=== PATIENT | male | born 1955 | race Caucasian/White ===

== ENCOUNTER → 2020-10-17 13:22 | Outpatient (BNVA) | payer MEDICARE, SELFPAY | PROVIDERS: PCP Internal Medicine; Visit Provider Urology | DX: C61 Malignant neoplasm of prostate (principal); N52.9 Male erectile dysfunction, unspecified | CPT/HCPCS: Q3014 ==

== ENCOUNTER → 2021-02-14 13:33 | Outpatient (BNVA) | payer MEDICARE, SELFPAY | PROVIDERS: PCP Internal Medicine; Visit Provider Urology | DX: C61 Malignant neoplasm of prostate (principal); N52.9 Male erectile dysfunction, unspecified | CPT/HCPCS: 51798; 81002; 99212 ==

== ENCOUNTER → 2021-08-16 13:04 | Outpatient (BNVA) | payer MEDICARE, SELFPAY | PROVIDERS: Visit Provider Urology | DX: C61 Malignant neoplasm of prostate (principal); N52.9 Male erectile dysfunction, unspecified; N40.1 Benign prostatic hyperplasia with lower urinary tract symptoms; N13.8 Other obstructive and reflux uropathy; E78.5 Hyperlipidemia, unspecified | CPT/HCPCS: Q3014 ==

== ENCOUNTER → 2021-12-19 08:19 | Outpatient (BNVA) | payer MEDICARE, SELFPAY | PROVIDERS: PCP Internal Medicine; Visit Provider Urology | DX: C61 Malignant neoplasm of prostate (principal); N52.9 Male erectile dysfunction, unspecified | CPT/HCPCS: Q3014 ==

== ENCOUNTER 2022-04-25 11:23 | Outpatient (AMB) | payer MEDICARE, SELFPAY ==
--- NOTE | 2022-04-25 11:36 | A.OFFVIS_ITS ---
Intake Vital Signs 04/25/22 11:44 Height 5 ft 11 in Weight 200 lb BMI 27.8 BP 130/80 Blood Pressure Location Rt brachial Position Sitting Respiration 18 Pulse 71 Pulse Source Pulse Oximeter Intake Visit Reasons: 4 Month MRI/PSA(SET) Intake Note: Patient is present for mri/psa follow up Sap Trainer Required: No Accompanied by: Self / Same As Patient Allergies No Known Allergies Allergy (Verified 10/23/23 11:06) HPI HPI Comments History of Present Illness Details Robert is very pleasant 66-year-old male. He is a patient of Dr. Almendarez. He is seen for the following urologic conditions - prostate cancer - erectile dysfunction Prostate cancer: Single core but group 4 in May 2020 on repeat biopsy Single core positive Did ask about erectile dysfunction and prescription for tadalafil provided Prostate cancer was diagnosed 01/18 Dr Rivers. Diagnosis was reached by needle biopsy, for elevated PSA, PSA at diagnosis 4.8, size at TRUS 55gm. The [place] grade is - December 2018 3+3 = 6 11/13 LLB 20% 1 core - Insufficient DNA for Polaris 05/20 - May 2020 , 4+4 = 8 / cores LLB 5% - on targetted core. pathology reviewed at [facility]. Assessment with small focus of [place] pattern 4. TNM Classification of Malignant Tumours (TNM) T1c. The [place] (NCCN) risk category is Low Risk (PSA< 10, Gl < 7, T1c), Group 1. Initial therapy included Primary treatment, Deferred Therapy (active surveillance). Recent labs included 04/20 2.0 10/20 2.7 02/19 2.4 04/21 1.5, 10/21 1.6 - 02/20 2.3, 08/22 2.1, 12/24 2.2, 04/23 1.9 Recent imaging included 05/21 MRI - will left paramedian base 2.3 cm lesion PiRADs 3 - 04/23 MRI right Associated conditions erectile dysfunction Yes hematuria No hot flashes No incontinence No osteopenia No pathologic fracture No radiation cystitis No rectal urgency No Therapeutic plan: Four months PSA with [facility] Medical History Hyperlipidemia Feeling of incomplete bladder emptying Benign prostatic hyperplasia with lower urinary tract symptoms Surgical History History of prostate biopsy Review of Systems Const Denies chills and Denies fever(s) Card Reports no additional complaints and Denies syncope Resp Denies cough GI Denies abdominal pain and Denies heartburn Reports as per HPI and Denies change in libido Neuro Denies syncope Psych Denies change in libido Endo Denies change in libido Physical Exam Vital Signs: Last Vital Signs Pulse 71 04/25/22 11:44 Resp 18 04/25/22 11:44 BP 130/80 04/25/22 11:44 BMI result Body Mass Index 27.8 Const General: cooperative, healthy appearing, comfortable and no acute distress Orientation/consciousness: patient oriented x3 HEENT Face and sinus: Yes normal facial exam Mouth: moist mucous membranes Neck Neck: Yes normal visual inspection, Yes full ROM and Yes trachea midline Chest Chest palpation & inspection: normal inspection of the chest Resp Effort & Inspection: normal respiratory effort, able to speak in complete sentences and no respiratory distress GI Inspection: Yes normal to inspection Back/Spine/Pelvis Cervical Spine: normal cervical lordosis Thoracic/Lumbar Spine: thoracic and lumbar spine normal to inspection Skin General skin exam: no rashes or lesions noted Neuro General: patient oriented x3, gait normal, tone normal and moves all extremities Extrem General: Yes normal to inspection and Yes capillary refill normal Assessment & Plan Assessment & Plan (1) Erectile dysfunction: Code(s): N52.9 - Male erectile dysfunction, unspecified (2) Prostate cancer: Comment: May 2020 single focused core 5% [place] 4 + 4 Code(s): C61 - Malignant neoplasm of prostate Plan Six-month follow-up Orders: Orders Prostate Specific Antigen 6 Months C61 - Malignant neoplasm of prostate Patient Instructions: Imaging studies, laboratory and physical exam results were discussed and reviewed in detail. No major barriers to patient understanding were identified. An opportunity to ask questions regarding the treatment plan was provided. All questions were answered. The patient expressed understanding and agreement with the above treatment plan. The patient is aware they should contact our office by phone for worsening of their current condition or the appearance of new urologic symptoms. Compliance is encouraged with any medications and followup testing that is ordered. It is a privilege to participate in the urologic care of your patient. If you have any questions or concerns regarding treatment for the above conditions, or other urologic issues, please do not hesitate to contact me. The office telephone contact is [phone]. This note is constructed using voice recognition software. While every effort has been made to ensure accuracy informatica errors may have been included. Yours sincerely, Dr Jerry Rivers MD, ANDRY [facility] - Urology Providers of Expert, Compassionate Care for the Genitourinary System Coding Level of Care Code Est Pt Level 3 (10396) Diagnoses Erectile dysfunction N52.9 Prostate cancer C61
[2022-04-25 11:44] VITALS: BP 130/80; PULSE 71; RESP 18; BMI 27.8
== END 2022-04-25 12:06 | disposition home or self-care (01) ==
LOC: HO.HUSH 11:23
PROVIDERS: PCP Internal Medicine; Visit Provider Urology
DX: N52.9 Male erectile dysfunction, unspecified (principal); C61 Malignant neoplasm of prostate
CPT/HCPCS: 99499

== ENCOUNTER → 2022-10-24 08:48 | Outpatient (BNVA) | payer MEDICARE, SELFPAY | PROVIDERS: PCP Internal Medicine; Visit Provider Urology | DX: C61 Malignant neoplasm of prostate (principal); N52.9 Male erectile dysfunction, unspecified; N40.1 Benign prostatic hyperplasia with lower urinary tract symptoms; N13.8 Other obstructive and reflux uropathy; Z79.899 Other long term (current) drug therapy | CPT/HCPCS: Q3014 ==

== ENCOUNTER → 2023-02-20 13:49 | Outpatient (BNVA) | payer MEDICARE, SELFPAY | PROVIDERS: PCP Internal Medicine; Visit Provider Urology | DX: C61 Malignant neoplasm of prostate (principal) | CPT/HCPCS: 99212 ==

== ENCOUNTER 2023-06-26 12:51 | Outpatient (AMB) | payer MEDICARE, SELFPAY ==
--- NOTE | 2023-06-26 13:25 | MHC.OFFVIS ---
Intake Intake Visit Reasons: 4 month psa(set) Allergies No Known Allergies Allergy (Verified 02/20/23 13:59) Medication List - Last Reconciled 06/26/23 by Jerry Rivers MD albuterol sulfate 90 mcg/actuation 2 puffs PO QID finasteride 5 mg PO DAILY 90 days simvastatin 20 mg PO BEDTIME tadalafil 5 mg PO DAILY PRN 90 days HPI HPI Comments History of Present Illness Details Robert is very pleasant male. He is a patient of Dr. Almendarez. He is seen for the following urologic conditions - prostate cancer - erectile dysfunction Telemedicine Evaluation 15 min Consultation [facility] Ramón Video attempted Stable PSA with finasteride cycling 06/24 4.1 cycling finasteride daily 01/22 3.1 cycling finasteride qod Four month review Prostate cancer: Single core but group 4 in May 2020 on repeat biopsy Single core positive Did ask about erectile dysfunction and prescription for tadalafil provided Prostate cancer was diagnosed 01/18 Dr Rivers. Diagnosis was reached by needle biopsy, for elevated PSA, PSA at diagnosis 4.8, size at TRUS 55gm. The [place] grade is - December 2018 3+3 = 6 11/13 LLB 20% 1 core - Insufficient DNA for Polaris 05/20 - May 2020 , 4+4 = 8 11/13 cores LLB 5% - on targetted core. pathology reviewed at [facility]. Assessment with small focus of [place] pattern 4 TNM Classification of Malignant Tumours (TNM) T1c. The D'Denny (NCCN) risk category is Low Risk (PSA< 10, Gl < 7, T1c), Group 1. Initial therapy included Primary treatment, Deferred Therapy (active surveillance). Recent labs included 04/20 2.0, 10/20 2.7 - 02/20 2.3, 08/22 2.1, 12/24 2.2, 04/23 1.9, 10/23 3.2 Recent imaging included 05/21 MRI - will left paramedian base 2.3 cm lesion PiRADs 3 - 04/23 MRI 40gm 9mm PiRADS 3 RBL Associated conditions erectile dysfunction Yes Therapeutic plan: Four months PSA PFSH Medical History Benign prostatic hyperplasia with lower urinary tract symptoms Feeling of incomplete bladder emptying Hyperlipidemia Surgical History History of prostate biopsy Review of Systems Const All systems reviewed & are unremarkable except as noted in HPI and below Reports no additional complaints Resp Reports no additional complaints GI Reports no additional complaints Reports as per HPI Musc Reports no additional complaints Physical Exam Telemedicine evaluation Appropriate responses Regular breathing rate and rhythm HEENT Head: Yes normal to inspection Ears: hearing grossly normal bilaterally Eyes General: appearance normal, both eyes and all related structures Neck Neck: Yes normal visual inspection Chest Chest palpation & inspection: normal inspection of the chest Resp Effort & Inspection: normal respiratory effort and able to speak in complete sentences Assessment & Plan Assessment & Plan (1) Prostate cancer: Comment: May 2020 single focused core 5% [place] 4 + 4 Code(s): C61 - Malignant neoplasm of prostate Plan Four month review P PSA Orders: Orders Prostate Specific Antigen 4 Months C61 - Malignant neoplasm of prostate Patient Instructions: Imaging studies, laboratory and physical exam results were discussed and reviewed in detail. No major barriers to patient understanding were identified. An opportunity to ask questions regarding the treatment plan was provided. All questions were answered. The patient expressed understanding and agreement with the above treatment plan. The patient is aware they should contact our office by phone for worsening of their current condition or the appearance of new urologic symptoms. Compliance is encouraged with any medications and followup testing that is ordered. It is a privilege to participate in the urologic care of your patient. If you have any questions or concerns regarding treatment for the above conditions, or other urologic issues, please do not hesitate to contact me. The office telephone contact is [phone]. This note is constructed using voice recognition software. While every effort has been made to ensure accuracy solar electric/photovoltaic installer errors may have been included. Yours sincerely, Dr Jerry Rivers MD, ANDRY [facility] - Urology Providers of Expert, Compassionate Care for the Genitourinary System Telehealth Telehealth Location of provider rendering services: practice address Location of patient: address on file Patient Identification confirmed using: Name, : Yes Telehealth method: video Patient verbally consented to treatment: Yes Patient verbally consented to billing insurance company: Yes Patient informed of any privacy concerns related to visit: Yes Coding Level of Care Code Tele Est Pt Level 3 (66640) Diagnoses Prostate cancer C61
== END 2023-06-26 14:14 | disposition home or self-care (01) ==
LOC: HO.HUSH 12:51
PROVIDERS: PCP Internal Medicine; Visit Provider Urology
DX: C61 Malignant neoplasm of prostate (principal); N52.1 Erectile dysfunction due to diseases classified elsewhere
CPT/HCPCS: 99213

== ENCOUNTER → 2023-06-26 12:51 | Outpatient (BNVA) | payer MEDICARE, SELFPAY | PROVIDERS: PCP Internal Medicine; Visit Provider Urology | DX: C61 Malignant neoplasm of prostate (principal); N52.9 Male erectile dysfunction, unspecified | CPT/HCPCS: Q3014 ==

== ENCOUNTER 2023-10-23 11:04 | Outpatient (AMB) | payer MEDICARE, SELFPAY ==
--- NOTE | 2023-10-23 11:04 | MHC.OFFVIS ---
Intake Intake Visit Reasons: 4M PSA(SET) Intake Note: Patient is Present for Telephone Follow Up Urology Med: Finasteride, Tadalafil Antibiotic Allergy: None Blood Thinner: None Allergies No Known Allergies Allergy (Verified 10/23/23 11:06) Medication List - Last Reconciled 10/23/23 by Jerry Rivers MD albuterol sulfate 90 mcg/actuation 2 puffs PO QID finasteride 5 mg PO DAILY 90 days simvastatin 20 mg PO BEDTIME tadalafil 5 mg PO DAILY PRN 90 days HPI HPI Comments History of Present Illness Details Robert is very pleasant male. He is a patient of Dr. Almendarez. He is seen for the following urologic conditions - prostate cancer - erectile dysfunction Telemedicine Evaluation 15 min Consultation [employer] Ram[facility] Video attempted PSA has risen in past 4 months 10/24 5.6 finsteride cycling 06/24 4.1 cycling finasteride daily 01/22 3.1 cycling finasteride qod Four month review Prostate cancer: Single core but group 4 in May 2020 on repeat biopsy Single core positive Did ask about erectile dysfunction and prescription for tadalafil provided Prostate cancer was diagnosed 01/18 Dr Rivers. Diagnosis was reached by needle biopsy, for elevated PSA, PSA at diagnosis 4.8, size at TRUS 55gm. The [place] grade is - December 2018 3+3 = 6 11/13 LLB 20% 1 core - Insufficient DNA for Polaris 05/20 - May 2020 , 4+4 = 8 / cores LLB 5% - on targeted core. pathology reviewed at [facility]. Assessment with small focus of [place] pattern 4 TNM Classification of Malignant Tumours (TNM) T1c. The D'Denny (NCCN) risk category is Low Risk (PSA< 10, Gl < 7, T1c), Group 1. Initial therapy included Primary treatment, Deferred Therapy (active surveillance). Recent labs included 04/20 2.0, 10/20 2.7, 02/20 2.3, 08/22 2.1, 12/24 2.2, 04/23 1.9, 10/23 3.2 Recent imaging included 05/21 MRI - will left paramedian base 2.3 cm lesion PiRADs 3 - 04/23 MRI 40gm 9mm PiRADS 3 RBL Associated conditions erectile dysfunction Yes Therapeutic plan: Two months PSA [facility] Medical History Hyperlipidemia Feeling of incomplete bladder emptying Benign prostatic hyperplasia with lower urinary tract symptoms Surgical History History of prostate biopsy Review of Systems Const All systems reviewed & are unremarkable except as noted in HPI and below Reports no additional complaints Resp Reports no additional complaints GI Reports no additional complaints Reports as per HPI Musc Reports no additional complaints Physical Exam Telemedicine evaluation Appropriate responses Regular breathing rate and rhythm HEENT Head: Yes normal to inspection Ears: hearing grossly normal bilaterally Eyes General: appearance normal, both eyes and all related structures Neck Neck: Yes normal visual inspection Chest Chest palpation & inspection: normal inspection of the chest Resp Effort & Inspection: normal respiratory effort and able to speak in complete sentences Assessment & Plan Assessment & Plan (1) Prostate cancer: Comment: May 2020 single focused core 5% [place] 4 + 4 Code(s): C61 - Malignant neoplasm of prostate (2) Erectile dysfunction: Code(s): N52.9 - Male erectile dysfunction, unspecified Plan Two month follow-up PSA Orders: Orders Blood Urea Nitrogen 10/23/23 R39.15 - Urgency of urination, C61 - Malignant neoplasm of prostate Creatinine 10/23/23 R39.15 - Urgency of urination, C61 - Malignant neoplasm of prostate MR pelvis wo/w con 10/23/23 C61 - Malignant neoplasm of prostate Prostate Specific Antigen 2 Months C61 - Malignant neoplasm of prostate Medications: Refilled finasteride 5 mg PO DAILY 90 tabs 1RF 90 days C61 - Malignant neoplasm of prostate Patient Instructions: Imaging studies, laboratory and physical exam results were discussed and reviewed in detail. No major barriers to patient understanding were identified. An opportunity to ask questions regarding the treatment plan was provided. All questions were answered. The patient expressed understanding and agreement with the above treatment plan. The patient is aware they should contact our office by phone for worsening of their current condition or the appearance of new urologic symptoms. Compliance is encouraged with any medications and followup testing that is ordered. It is a privilege to participate in the urologic care of your patient. If you have any questions or concerns regarding treatment for the above conditions, or other urologic issues, please do not hesitate to contact me. The office telephone contact is [phone]. This note is constructed using voice recognition software. While every effort has been made to ensure accuracy petroleum geology faculty member errors may have been included. Yours sincerely, Dr Jerry Rivers MD, [facility] - Urology Providers of Expert, Compassionate Care for the Genitourinary System Telehealth Telehealth Location of provider rendering services: practice address Location of patient: address on file Patient Identification confirmed using: Name, : Yes Telehealth method: video Patient verbally consented to treatment: Yes Patient verbally consented to billing insurance company: Yes Patient informed of any privacy concerns related to visit: Yes Coding Level of Care Code Tele Est Pt Level 3 (83051) Diagnoses Prostate cancer C61 Erectile dysfunction N52.9
== END 2023-10-23 11:48 | disposition home or self-care (01) ==
LOC: HO.HUSH 11:04
PROVIDERS: PCP Internal Medicine; Visit Provider Urology
DX: C61 Malignant neoplasm of prostate (principal); N52.9 Male erectile dysfunction, unspecified
CPT/HCPCS: 99213

== ENCOUNTER → 2023-10-23 11:04 | Outpatient (BNVA) | payer MEDICARE, SELFPAY | PROVIDERS: PCP Internal Medicine; Visit Provider Urology ==

== ENCOUNTER 2023-12-29 11:44 | Outpatient (AMB) | payer MEDICARE, SELFPAY ==
--- NOTE | 2023-12-29 11:56 | A.OFFVIS_ITS ---
Intake Intake Visit Reasons: 2m/MRI/PSA(set)Confirmed Intake Note: Patient is Present for Follow Up Urology Medication: Finasteride, Tadalafil Antibiotic Allergies: None Blood Thinners: None Allergies No Known Allergies Allergy (Verified 10/23/23 11:06) HPI HPI Comments History of Present Illness Details Robert is very pleasant male. He is a patient of Dr. Almendarez. He is seen for the following urologic conditions - prostate cancer - erectile dysfunction PSA has stayed elevated for past 4 months Is due for targeted MRI ultrasound guided prostate biopsy This will be organized 12/26 5.6 finasteride 10/24 5.6 finsteride cycling 06/24 4.1 cycling finasteride daily 01/22 3.1 cycling finasteride qod MRI - 11/25 prostate MRI anterior right trans ition zone 1.3 cm PiRADS 3 Prostate cancer: Single core but group 4 in May 2020 on repeat biopsy Single core positive Did ask about erectile dysfunction and prescription for tadalafil provided Prostate cancer was diagnosed 01/18 Dr Rivers. Diagnosis was reached by needle biopsy, for elevated PSA, PSA at di agnosis 4.8, size at TRUS 55gm. The [place] grade is - December 2018 3+3 = 6 11/13 LLB 20% 1 core - Insufficient DNA for Polaris 05/20 - May 2020 , 4+4 = 8 11/13 cores LLB 5% - on targeted core. pathology reviewed at [facility]. Assessment with small focus of [place] pattern 4 TNM Classification of Malignant Tumours (TNM) T1c. The D'Denny (NCCN) risk category is Low Risk (PSA< 10, Gl < 7, T1c), Group 1. Initial therapy included Primary treatment, Deferred Therapy (active surveillance). Recent labs included 04/20 2.0, 10/20 2.7, 02/20 2.3, 08/22 2.1, 12/24 2.2, 04/23 1.9, 10/23 3.2 Recent imaging included 05/21 MRI - will left paramedian base 2.3 cm lesion PiRADs 3 - 04/23 MRI 40gm 9mm PiRADS 3 RBL Associated conditions erectile dysfunction Yes Therapeutic plan: Two months PSA PFSH Medical History Hyperlipidemia Feeling of incomplete bladder emptying Benign prostatic hyperplasia with lower urinary tract symptoms Surgical History History of prostate biopsy Review of Systems Const Denies chills and Denies fever(s) Card Reports no additional complaints and Denies syncope Resp Denies cough GI Denies abdominal pain and Denies heartburn Reports as per HPI and Denies change in libido Neuro Denies syncope Psych Denies change in libido Endo Denies change in libido Physical Exam Const General: cooperative, healthy appearing, comfortable and no acute distress Orientation/consciousness: patient oriented x3 HEENT Face and sinus: Yes normal facial exam Mouth: moist mucous membranes Neck Neck: Yes normal visual inspection, Yes full ROM and Yes trachea midline Chest Chest palpation & inspection: normal inspection of the chest Resp Effort & Inspection: normal respiratory effort, able to speak in complete sentences and no respiratory distress GI Inspection: Yes normal to inspection Back/Spine/Pelvis Cervical Spine: normal cervical lordosis Thoracic/Lumbar Spine: thoracic and lumbar spine normal to inspection Skin General skin exam: no rashes or lesions noted Neuro General: patient oriented x3, gait normal, tone normal and moves all extremities Extrem General: Yes normal to inspection and Yes capillary refill normal Assessment & Plan Assessment & Plan (1) Prostate cancer: Comment: May 2020 single focused core 5% [place] 4 + 4 Code(s): C61 - Malignant neoplasm of prostate (2) Erectile dysfunction: Code(s): N52.9 - Male erectile dysfunction, unspecified Plan Risks, benefits and alternatives to therapy were discussed. These include but are not limited to infection, bleeding, damage to local organs and tissues, need for further interventions. Anesthetic risks regarding cardiac arrhythmia, blood clots, and potential mortality were discussed. The patient understands the typical recovery time and the outpatient nature of the procedure. After consideration of these risks the patient gives full informed consent and they wish to move ahead with the procedure. Targeted ultrasound MRI fusion biopsy Patient Instructions: Imaging studies, laboratory and physical exam results were discussed and reviewed in detail. No major barriers to patient understanding were identified. An opportunity to ask questions regarding the treatment plan was provided. All questions were answered. The patient expressed understanding and agreement with the above treatment plan. The patient is aware they should contact our office by phone for worsening of their current condition or the appearance of new urologic symptoms. Compliance is encouraged with any medications and followup testing that is ordered. It is a privilege to participate in the urologic care of your patient. If you have any questions or concerns regarding treatment for the above conditions, or other urologic issues, please do not hesitate to contact me. The office telephone contact is [phone]. This note is constructed using voice recognition software. While every effort has been made to ensure accuracy sales support engineer errors may have been included. Yours sincerely, Dr Jerry Rivers MD, ANDRY [facility] - Urology Providers of Expert, Compassionate Care for the Genitourinary System Coding Level of Care Code Est Pt Level 4 (14181) Diagnoses Prostate cancer C61 Erectile dysfunction N52.9
== END 2023-12-29 12:31 | disposition home or self-care (01) ==
PROVIDERS: PCP Internal Medicine; Visit Provider Urology
DX: C61 Malignant neoplasm of prostate (principal); N52.9 Male erectile dysfunction, unspecified
CPT/HCPCS: 99213

== ENCOUNTER → 2023-12-29 11:44 | Outpatient (BNVA) | payer MEDICARE, SELFPAY | PROVIDERS: PCP Internal Medicine; Visit Provider Urology | DX: C61 Malignant neoplasm of prostate (principal); N52.9 Male erectile dysfunction, unspecified | CPT/HCPCS: 99212 ==

== ENCOUNTER → 2024-01-18 09:35 | Day surgery (SDC) | payer MEDICARE, SELFPAY ==
[2024-01-18 09:50] VITALS: BMI 27.6
[2024-01-18 09:59] VITALS: BP 126/76; PULSE 67; RESP 18; TEMP 36.1; O2SAT 97
[2024-01-18] MEDS: Lactated Ringers 1,000 ML 50 ML IVCONT (10:17)
[2024-01-18] MEDS: levoFLOXacin 500 MG TABLET PO (10:20)
--- NOTE | 2024-01-18 10:27 | W.PM.OPN ---
Operative Note Operative Note Date of Service: 01/18/24 Narrative: 11/25 prostate MRI anterior right transition zone 1.3 cm PiRADS 3 Preoperative diagnosis: Prostate Cancer Postoperative diagnosis: Prostate Cancer Procedure: 1. transrectal ultrasound-guided pudendal nerve block 2. MRI-US fusion image registration performed 3. transperineal ultrasound-guided prostate biopsy 16 core including targets Surgeon: Dr. Jerry Rivers Anesthetic: Sedation plus local Indications for procedure: Prostate Cancer Procedure: After informed consent was verified, the patient was brought into the procedure area. Patient identity confirmed. Perioperative antibiotics confirmed. Safety pause time out performed. Anesthesia performed per protocol. Scrotum taped out of operative area. Iodine prep used. Perineal injection of local anesthetic. Digital guided prostate pudendal nerve block performed with 10 cc of 1% lidocaine. 5cc each side. Combination 10cc iodine with 50cc gel was mixed and placed in the rectum. Ultrasound probe was placed per rectum. Ultrasound probe stabilized on a prostate stepper with attached grid. The [employer] software and hardware platform used for US image acquisition, US 3D model creation and MRI-US fusion image overlay. Ultrasound placement was made with external grid calibration for height and prostate diameter in both the transverse and longitudinal planes. Grid A-C covering right prostate and c-F covering left prostate. Numbers 1.0-2.5 covering posterior prostate and 2.5-4.0 covering anterior prostate. Once grid calibration was confirmed prostate ultrasound data acquisition was performed in the transverse fashion. The US images were registered to create model boundaries. A three dimensional ultrasound model was created using The [employer] software. The model was reviewed against acquired US images. The planned needle targeting, based on prior acquisition of MRI imaging, was overlaid on the ultrasound images and targets confirmed through ultrasound review. Adjustments were then made between real time and projected model targeting locations. Based on pre-planning evaluation 16 targets had been identified. These included 2 targets of the PI-RADS 3 prostate bilateral mid identified lesion/s. He tolerated the procedure well. Was transferred to stable condition in the PACU. Printed instructions regarding antibiotic use and common side effects such as low-grade temperature, potential infection and bleeding were given Pathology: 16 core prostate biopsy CPT 49821 Modifier 22 for complexity of procedure execution (Perineal prostate biopsy) CPT 26968 US/MRI target fusion and manipulation in realtime
--- NOTE | 2024-01-18 10:27 | MHC.SHP ---
Pre-Procedural Eval Section A - 24 Hr Update-Section A only Date of Service: 01/18/24 The patient is an INPATIENT: No Changes since office visit: No Cold of Flu in the past 2 weeks, No New Medical Problems, No Changes in Medication and No Patient answered all questions The patient has been examined within 24 hours of the surgical procedure. The History & Physical has been completed within 30 days and I have reviewed it.: Yes Section B - Complete if H&P > 30 days Chief Complaint: Malignant neoplasm of prostate Present Medications: see Short Stay Collaborative assessment History of Previous Operations: Relevant previous surgery/procedure and date(s) Allergies: Allergies Allergy/AdvReac Type Severity Reaction Status Date / Time No Known Allergies Allergy Verified 10/23/23 11:06 Review of Systems Sugical H&P ROS: Negative: Constitution, Cardiovascular, Respiratory, Neurological, Psychiatric, Hem-Onc, Allergic/Immunologic, Gastrointestinal, Genitourinary, Musculoskeletal, Integumentary, Endocrine and Eyes/Ears/Nose/Throat Exam Surgical H&P Exam: Normal: HEENT, Normal: Heart, Normal: Lungs, Normal: Extremities, Normal: Abdomen, Normal: Skin and Normal: Neurological Plan Diagnosis/Plan: Unchanged (MRI ultrasound fusion biopsy) I have reviewed the history and physical and performed a pertinent physical examination on my patient. No changes have occurred unless specified. Time Spent With Patient Time: Total time managing care of this patient today ____ minutes.
--- NOTE | 2024-01-18 10:34 | HO.ANESPROP2 ---
HPI - Anesthesia Eval Consult details Narrative: for prostate bx PMFSH Active Problems Active Problems: All Active Problems (Updated 12/19/21 @ 09:00 by Jerry Rivers MD) Erectile dysfunction (Acute) Prostate cancer (Acute) Past Medical History Medical History Hyperlipidemia Feeling of incomplete bladder emptying Benign prostatic hyperplasia with lower urinary tract symptoms Family History Family history of problems with anesthesia: No Surgical History Surgical History History of prostate biopsy History of Problems with Anesthesia: No Social History Social History Advance Directives: No Advance Directives Information Provided: Yes Meds Allergies Allergy/AdvReac Type Severity Reaction Status Date / Time No Known Allergies Allergy Verified 10/23/23 11:06 Active Medications: Current Medications Lactated Ringer's (Lr) 1,000 mls @ 50 mls/hr IVCONT .Q20H WON Last Admin: 01/18/24 10:17 Dose: 50 mls/hr Home Medications Medication Instructions Recorded Confirmed Last Taken Type albuterol sulfate 90 mcg/actuation 2 puff PO QID 10/17/20 01/18/24 Unknown History aerosol inhaler simvastatin 20 mg tablet 20 mg PO BEDTIME 10/17/20 01/18/24 Unknown History Exam Height,Weight and Vital Signs: Height 5 ft 11 in Weight 89.811 kg Last Vital Signs Temp 96.9 F 01/18/24 09:59 Pulse 67 01/18/24 09:59 Resp 18 01/18/24 09:59 BP 126/76 01/18/24 09:59 Pulse Ox 97 01/18/24 09:59 O2 Del Method Room Air 01/18/24 09:59 Airway Mallampati Class: II TM Dist: <=3cm Neck ROM: Full Loose/Missing/Broken Teeth: No Heart: ok Lungs: ok Assessment and Plan Assessment Anesthesia Assessment: Anesthesia Plan Discussed and Chart Reviewed Final Anesthetic Review Family History of Problems with Anesthesia: No History of Problems with Anesthesia: No NPO: Yes ASA Class: II Final Preanesthetic Review: No Changes in Pt Med Stat, Meds/Allgs Chart Reviewed, Consent Obtained/Reviewed and Anes Risks/Benef Reviewed Patient Risk: Low Procedure Risk: Low Anesthetic Plan Anesthetic Plan: GA and Agree w/ Assess. and Plan Disposition: Standard PACU
[2024-01-18 11:20] VITALS: BP 120/74; PULSE 77; RESP 16; TEMP 36.3; O2SAT 96
[2024-01-18 11:25] VITALS: BP 128/76; PULSE 70; RESP 16; O2SAT 96
[2024-01-18 11:30] VITALS: BP 128/80; PULSE 71; RESP 16; O2SAT 96
[2024-01-18 11:35] VITALS: BP 120/82; PULSE 60; RESP 16; O2SAT 96
[2024-01-18 11:50] VITALS: BP 128/79; PULSE 61; RESP 16; TEMP 36.3; O2SAT 96
== END | disposition home or self-care (01) ==
PROVIDERS: PCP Internal Medicine; Visit Provider Urology
PROC: (CPT 55700; principal; 2024-01-18 11:00)
DX: C61 Malignant neoplasm of prostate (principal); N40.1 Benign prostatic hyperplasia with lower urinary tract symptoms; R39.14 Feeling of incomplete bladder emptying; N52.9 Male erectile dysfunction, unspecified; Z79.899 Other long term (current) drug therapy
CPT/HCPCS: 55706; 88305; 88344; C2618; J2704; J3010

== ENCOUNTER 2024-02-09 14:32 | Outpatient (AMB) | payer MEDICARE, SELFPAY ==
--- NOTE | 2024-02-09 14:33 | MHC.OFFVIS ---
Intake Intake Visit Reasons: Prostate Biopsy results Allergies No Known Allergies Allergy (Verified 10/23/23 11:06) HPI HPI Comments History of Present Illness Details Robert is very pleasant male. He is a patient of Dr. Almendarez. He is seen for the following urologic conditions - prostate cancer - erectile dysfunction Telemedicine Evaluation 15 min Consultation [employer] Video attempted Followup targeted biopsy Confirms Gl 4+4 single core at target 12/26 5.6 finasteride 10/24 5.6 finsteride cycling 06/24 4.1 cycling finasteride daily 01/22 3.1 cycling finasteride qod MRI - 11/25 prostate MRI anterior right transition zone 1.3 cm PiRADS 3, 40cc Prostate Cancer - 01/23 - Grade 4 single core [place] score: 4+4=8 (b 3.5), 4+3=7 (D 3.5) - too small to grade (e 2.0, c 3.5) % of pattern 4: 50% of the tumor (at least), % of pattern 5: 0% Grade group: 4 and 3 Tumor quantitation: Number cores positive: 4 Total number of cores: 16 % of tissue involved: 10% of all tissue examined Periprostatic fat inv.: Not identified Seminal vesicle inv.: Not identified Perineural inv.: Not identified LVI: Not identified Prostate cancer: Single core but group 4 in May 2020 on repeat biopsy Single core positive Did ask about erectile dysfunction and prescription for tadalafil provided Prostate cancer was diagnosed 01/18 Dr Rivers. Diagnosis was reached by needle biopsy, for elevated PSA, PSA at diagnosis 4.8, size at TRUS 55gm. The [place] grade is - December 2018 3+3 = 6 11/13 LLB 20% 1 core - Insufficient DNA for Polaris 05/20 - May 2020 , 4+4 = 8 / cores LLB 5% - on targeted core. pathology reviewed at [facility]. Assessment with small focus of [place] pattern 4 TNM Classification of Malignant Tumours (TNM) T1c. The D'Denny (NCCN) risk category is Low Risk (PSA< 10, Gl < 7, T1c), Group 1. Initial therapy included Primary treatment, Deferred Therapy (active surveillance). Recent labs included 04/20 2.0, 10/20 2.7, 02/20 2.3, 08/22 2.1, 12/24 2.2, 04/23 1.9, 10/23 3.2 Recent imaging included 05/21 MRI - will left paramedian base 2.3 cm lesion PiRADs 3 - 04/23 MRI 40gm 9mm PiRADS 3 RBL Associated conditions erectile dysfunction Yes Therapeutic plan: Two months PSA [facility] Medical History Hyperlipidemia Feeling of incomplete bladder emptying Benign prostatic hyperplasia with lower urinary tract symptoms Surgical History History of prostate biopsy Review of Systems Const All systems reviewed & are unremarkable except as noted in HPI and below Reports no additional complaints Resp Reports no additional complaints GI Reports no additional complaints Reports as per HPI Musc Reports no additional complaints Physical Exam Telemedicine evaluation Appropriate responses Regular breathing rate and rhythm HEENT Head: Yes normal to inspection Ears: hearing grossly normal bilaterally Eyes General: appearance normal, both eyes and all related structures Neck Neck: Yes normal visual inspection Chest Chest palpation & inspection: normal inspection of the chest Resp Effort & Inspection: normal respiratory effort and able to speak in complete sentences Assessment & Plan Assessment & Plan (1) Prostate cancer: Comment: May 2020 single focused core 5% [place] 4 + 4 Code(s): C61 - Malignant neoplasm of prostate Plan Polaris evaluation Patient Instructions: Imaging studies, laboratory and physical exam results were discussed and reviewed in detail. No major barriers to patient understanding were identified. An opportunity to ask questions regarding the treatment plan was provided. All questions were answered. The patient expressed understanding and agreement with the above treatment plan. The patient is aware they should contact our office by phone for worsening of their current condition or the appearance of new urologic symptoms. Compliance is encouraged with any medications and followup testing that is ordered. It is a privilege to participate in the urologic care of your patient. If you have any questions or concerns regarding treatment for the above conditions, or other urologic issues, please do not hesitate to contact me. The office telephone contact is [phone]. This note is constructed using voice recognition software. While every effort has been made to ensure accuracy pediatric physician assistant errors may have been included. Yours sincerely, Dr Jerry Rivers MD, ANDRY [facility] - Urology Providers of Expert, Compassionate Care for the Genitourinary System Telehealth Telehealth Location of provider rendering services: practice address Location of patient: address on file Patient Identification confirmed using: Name, : Yes Telehealth method: video Patient verbally consented to treatment: Yes Patient verbally consented to billing insurance company: Yes Patient informed of any privacy concerns related to visit: Yes Coding Level of Care Code Tele Est Pt Level 3 (24298) Diagnoses Prostate cancer C61
== END 2024-02-09 15:28 | disposition home or self-care (01) ==
LOC: HO.HUSH 14:32
PROVIDERS: PCP Internal Medicine; Visit Provider Urology
DX: C61 Malignant neoplasm of prostate (principal)
CPT/HCPCS: 99213

== ENCOUNTER → 2024-02-09 14:32 | Outpatient (BNVA) | payer MEDICARE, SELFPAY | PROVIDERS: PCP Internal Medicine; Visit Provider Urology ==

== ENCOUNTER 2024-03-24 11:35 | Outpatient (AMB) | payer MEDICARE, SELFPAY ==
--- NOTE | 2024-03-24 11:39 | MHC.OFFVIS ---
Intake Visit Reasons: 6 week PSA/ Prolaris results(SET) Intake Note: Patient is Present for Follow Up Urology Medication: None (no longer taking Tadalafil and Finasteride) Antibiotic Allergies: None Blood Thinners:None Allergies No Known Allergies Allergy (Verified 03/24/24 11:45) Medication List - Last Reconciled 03/24/24 by Jerry Rivers MD finasteride 5 mg PO DAILY 90 days simvastatin 20 mg PO BEDTIME tadalafil 5 mg PO DAILY PRN 90 days HPI Comments Details: Robert is very pleasant male. He is a patient of Dr. Almendarez. He is seen for the following urologic conditions - prostate cancer - erectile dysfunction Follow-up discussion following molecular evaluation Molecular evaluation confirms lower risk features despite higher risk clinical features Risk profile left side of high-risk curve below median value for intermediate risk Recommendation single mode therapy without adjuvant hormonal therapy Discussed MRI finding that shows PI-RADS 3 despite high-risk clinical characteristic of biopsy Discussed treatments including robotic prostatectomy versus brachytherapy versus hypofractionated radiation Given age and other performance characteristics would recommend brachytherapy versus hypofractionated radiation Referral to Dr. Kp Tillman who performs brachytherapy has been made 03/25 7.9 12/26 5.6 finasteride 10/24 5.6 finsteride cycling 06/24 4.1 cycling finasteride daily 01/22 3.1 cycling finasteride qod MRI - 11/25 prostate MRI anterior right transition zone 1.3 cm PiRADS 3, 40cc Prolaris - molecular score 3.6, overall recommendation single mode therapy (adjuvant hormonal therapy not recommended0 - risk profile matches left side high-risk curve below median for unfavorable intermediate Prostate Cancer - 01/23 - Grade 4 single core [place] score: 4+4=8 (b 3.5), 4+3=7 (D 3.5) - too small to grade (e 2.0, c 3.5) % of pattern 4: 50% of the tumor (at least), % of pattern 5: 0% Grade group: 4 and 3 Tumor quantitation: Number cores positive: 4 Total number of cores: 16 % of tissue involved: 10% of all tissue examined Periprostatic fat inv.: Not identified Seminal vesicle inv.: Not identified Perineural inv.: Not identified LVI: Not identified Prostate cancer: Single core but group 4 in May 2020 on repeat biopsy Single core positive Did ask about erectile dysfunction and prescription for tadalafil provided Prostate cancer was diagnosed 01/18 Dr Rivers. Diagnosis was reached by needle biopsy, for elevated PSA, PSA at diagnosis 4.8, size at TRUS 55gm. The [place] grade is - December 2018 3+3 = 6 11/13 LLB 20% 1 core - Insufficient DNA for Polaris 05/20 - May 2020 , 4+4 = 8 / cores LLB 5% - on targeted core. pathology reviewed at [facility]. Assessment with small focus of [place] pattern 4 TNM Classification of Malignant Tumours (TNM) T1c. The D'Denny (NCCN) risk category is Low Risk (PSA< 10, Gl < 7, T1c), Group 1. Initial therapy included Primary treatment, Deferred Therapy (active surveillance). Recent labs included 04/20 2.0, 10/20 2.7, 02/20 2.3, 08/22 2.1, 12/24 2.2, 04/23 1.9, 10/23 3.2 Recent imaging included 05/21 MRI - will left paramedian base 2.3 cm lesion PiRADs 3 - 04/23 MRI 40gm 9mm PiRADS 3 RBL Associated conditions erectile dysfunction Yes PFSH Medical History Hyperlipidemia Feeling of incomplete bladder emptying Benign prostatic hyperplasia with lower urinary tract symptoms Surgical History History of prostate biopsy Review of Systems Const Denies chills and Denies fever(s) Card Reports no additional complaints and Denies syncope Resp Denies cough GI Denies abdominal pain and Denies heartburn Reports as per HPI and Denies change in libido Neuro Denies syncope Psych Denies change in libido Endo Denies change in libido Physical Exam Const General: cooperative, healthy appearing, comfortable and no acute distress Orientation/consciousness: patient oriented x3 HEENT Face and sinus: Yes normal facial exam Mouth: moist mucous membranes Neck Neck: Yes normal visual inspection, Yes full ROM and Yes trachea midline Chest Chest palpation & inspection: normal inspection of the chest Resp Effort & Inspection: normal respiratory effort, able to speak in complete sentences and no respiratory distress GI Inspection: Yes normal to inspection Back/Spine/Pelvis Cervical Spine: normal cervical lordosis Thoracic/Lumbar Spine: thoracic and lumbar spine normal to inspection Skin General skin exam: no rashes or lesions noted Neuro General: patient oriented x3, gait normal, tone normal and moves all extremities Extrem General: Yes normal to inspection and Yes capillary refill normal Assessment & Plan Assessment & Plan (1) Prostate cancer: Comment: May 2020 single focused core 5% [place] 4 + 4 Code(s): C61 - Malignant neoplasm of prostate Category: Medical Plan Four week follow-up tele Orders: Referrals Radiation Oncology Referral C61 - Malignant neoplasm of prostate Patient Instructions: Imaging studies, laboratory and physical exam results were discussed and reviewed in detail. No major barriers to patient understanding were identified. An opportunity to ask questions regarding the treatment plan was provided. All questions were answered. The patient expressed understanding and agreement with the above treatment plan. The patient is aware they should contact our office by phone for worsening of their current condition or the appearance of new urologic symptoms. Compliance is encouraged with any medications and followup testing that is ordered. It is a privilege to participate in the urologic care of your patient. If you have any questions or concerns regarding treatment for the above conditions, or other urologic issues, please do not hesitate to contact me. The office telephone contact is [phone]. This note is constructed using voice recognition software. While every effort has been made to ensure accuracy casket assembler errors may have been included. Yours sincerely, Dr Jerry Rivers MD, ANDRY [facility] - Urology Providers of Expert, Compassionate Care for the Genitourinary System Coding Level of Care Code Est Pt Level 4 (73025) Diagnoses Prostate cancer C61
== END 2024-03-24 12:02 | disposition home or self-care (01) ==
PROVIDERS: PCP Internal Medicine; Visit Provider Urology
DX: C61 Malignant neoplasm of prostate (principal)
CPT/HCPCS: 99214

== ENCOUNTER → 2024-03-24 11:35 | Outpatient (BNVA) | payer MEDICARE, SELFPAY | PROVIDERS: PCP Internal Medicine; Visit Provider Urology | DX: C61 Malignant neoplasm of prostate (principal) | CPT/HCPCS: 99212 ==

== ENCOUNTER 2024-04-22 09:29 | Outpatient (AMB) | payer MEDICARE, SELFPAY ==
--- NOTE | 2024-04-22 09:38 | MHC.OFFVIS ---
Intake Visit Reasons: 4 week follow up Intake Note: Pt presents to the office today as a telehealth visit for a 4 week follow up. Urology meds-tadalafil Blood thinners-None Allergies No Known Allergies Allergy (Verified 04/22/24 09:39) Medication List - Last Reconciled 04/22/24 by Jerry Rivers MD finasteride 5 mg PO DAILY 90 days simvastatin 20 mg PO BEDTIME tadalafil 5 mg PO DAILY PRN 90 days HPI Comments Details: Robert is very pleasant male. He is a patient of Dr. Almendarez. He is seen for the following urologic conditions - prostate cancer - erectile dysfunction Telemedicine Evaluation 15 min Consultation [employer] Video Has upcoming meeting with Dr. Layton regarding prostatectomy Did discuss seeing Dr. Ureña for CyberKnife versus hypofractionated therapy Referral made Six week follow-up for discussion Follow-up discussion following molecular evaluation Molecular evaluation confirms lower risk features despite higher risk clinical features Risk profile left side of high-risk curve below median value for intermediate risk Recommendation single mode therapy without adjuvant hormonal therapy Discussed MRI finding that shows PI-RADS 3 despite high-risk clinical characteristic of biopsy Discussed treatments including robotic prostatectomy versus brachytherapy versus hypofractionated radiation 03/25 7.9 12/26 5.6 finasteride 10/24 5.6 finsteride cycling 06/24 4.1 cycling finasteride daily 01/22 3.1 cycling finasteride qod MRI - 11/25 prostate MRI anterior right transition zone 1.3 cm PiRADS 3, 40cc Prolaris - molecular score 3.6, overall recommendation single mode therapy (adjuvant hormonal therapy not recommended0 - risk profile matches left side high-risk curve below median for unfavorable intermediate Prostate Cancer - 01/23 - Grade 4 single core [place] score: 4+4=8 (b 3.5), 4+3=7 (D 3.5) - too small to grade (e 2.0, c 3.5) % of pattern 4: 50% of the tumor (at least), % of pattern 5: 0% Grade group: 4 and 3 Tumor quantitation: Number cores positive: 4 Total number of cores: 16 % of tissue involved: 10% of all tissue examined Periprostatic fat inv.: Not identified Seminal vesicle inv.: Not identified Perineural inv.: Not identified LVI: Not identified Prostate cancer: Single core but group 4 in May 2020 on repeat biopsy Single core positive Did ask about erectile dysfunction and prescription for tadalafil provided Prostate cancer was diagnosed 01/18 Dr Rivers. Diagnosis was reached by needle biopsy, for elevated PSA, PSA at diagnosis 4.8, size at TRUS 55gm. The [place] grade is - December 2018 3+3 = 6 / LLB 20% 1 core - Insufficient DNA for Polaris 05/20 - May 2020 , 4+4 = 8 / cores LLB 5% - on targeted core. pathology reviewed at [facility]. Assessment with small focus of [place] pattern 4 TNM Classification of Malignant Tumours (TNM) T1c. The D'Denny (NCCN) risk category is Low Risk (PSA< 10, Gl < 7, T1c), Group 1. Initial therapy included Primary treatment, Deferred Therapy (active surveillance). Recent labs included 04/20 2.0, 10/20 2.7, 02/20 2.3, 08/22 2.1, 12/24 2.2, 04/23 1.9, 10/23 3.2 Recent imaging included 05/21 MRI - will left paramedian base 2.3 cm lesion PiRADs 3 - 04/23 MRI 40gm 9mm PiRADS 3 RBL Associated conditions erectile dysfunction Yes PFSH Medical History Hyperlipidemia Feeling of incomplete bladder emptying Benign prostatic hyperplasia with lower urinary tract symptoms Surgical History History of prostate biopsy Review of Systems Const All systems reviewed & are unremarkable except as noted in HPI and below Reports no additional complaints Resp Reports no additional complaints GI Reports no additional complaints Reports as per HPI Musc Reports no additional complaints Physical Exam Telemedicine evaluation Appropriate responses Regular breathing rate and rhythm HEENT Head: Yes normal to inspection Ears: hearing grossly normal bilaterally Eyes General: appearance normal, both eyes and all related structures Neck Neck: Yes normal visual inspection Chest Chest palpation & inspection: normal inspection of the chest Resp Effort & Inspection: normal respiratory effort and able to speak in complete sentences Telehealth Telehealth Telehealth [facility]: [facility] Location of provider rendering services: practice address Location of patient: address on file Patient Identification confirmed using: Name, : Yes Telehealth method: video Patient verbally consented to treatment: Yes Patient verbally consented to billing insurance company: Yes Patient informed of any privacy concerns related to visit: Yes Minutes spent on Phone/Video with Pt.: 15 Assessment & Plan Assessment & Plan (1) Prostate cancer: Comment: May 2020 single focused core 5% [place] 4 + 4 Code(s): C61 - Malignant neoplasm of prostate Category: Medical (2) Erectile dysfunction: Code(s): N52.9 - Male erectile dysfunction, unspecified Category: Medical Plan Six week follow-up Orders: Referrals Radiation Oncology Referral C61 - Malignant neoplasm of prostate Medications: New finasteride 5 mg PO DAILY 90 tabs 1RF 90 days N13.8 - Other obstructive and reflux uropathy, N40.1 - Benign prostatic hyperplasia with lower urinary tract symptoms, R33.9 - Retention of urine, unspecified Patient Instructions: Imaging studies, laboratory and physical exam results were discussed and reviewed in detail. No major barriers to patient understanding were identified. An opportunity to ask questions regarding the treatment plan was provided. All questions were answered. The patient expressed understanding and agreement with the above treatment plan. The patient is aware they should contact our office by phone for worsening of their current condition or the appearance of new urologic symptoms. Compliance is encouraged with any medications and followup testing that is ordered. It is a privilege to participate in the urologic care of your patient. If you have any questions or concerns regarding treatment for the above conditions, or other urologic issues, please do not hesitate to contact me. The office telephone contact is [phone]. This note is constructed using voice recognition software. While every effort has been made to ensure accuracy concert or lecture hall manager errors may have been included. Yours sincerely, Dr Jerry Rivers MD, AND[facility] - Urology Providers of Expert, Compassionate Care for the Genitourinary System Coding Level of Care Code Tele Est Pt Level 3 (87818) Diagnoses Prostate cancer C61 Erectile dysfunction N52.9
== END 2024-04-22 11:21 | disposition home or self-care (01) ==
LOC: HO.HUSH 09:29
PROVIDERS: PCP Internal Medicine; Visit Provider Urology
DX: C61 Malignant neoplasm of prostate (principal); N52.9 Male erectile dysfunction, unspecified
CPT/HCPCS: 99213

== ENCOUNTER → 2024-04-22 09:29 | Outpatient (BNVA) | payer MEDICARE, SELFPAY | PROVIDERS: PCP Internal Medicine; Visit Provider Urology ==

== ENCOUNTER 2024-10-11 23:59 | Outpatient (BNV) | payer MEDICARE, SELFPAY | END 2024-10-12 23:59 | PROVIDERS: PCP Internal Medicine; Visit Provider Internal Medicine | DX: I31.39 Other pericardial effusion (noninflammatory) (principal) | CPT/HCPCS: 99223 ==

== ENCOUNTER 2024-10-21 14:03 | Outpatient (AMB) | payer MEDICARE, SELFPAY ==
--- NOTE | 2024-10-21 14:05 | MHC.OFFVIS ---
Intake Visit Reasons: PSA/Dr. Layton follow up(set) Intake Note: Patient is present for PSA/Dr. Bonilla F/U Urology Medication:NONE Antibiotic Allergy:none Blood Thinner:none Concrete Finishing Machine Operator Required: No Allergies No Known Allergies Allergy (Verified 10/21/24 14:06) HPI Comments Details: Robert is very pleasant male. He is a patient of Dr. Almendarez. He is seen for the following urologic conditions - prostate cancer - erectile dysfunction 3m f/u with PSA PSA 10/25 <0.1 Completed prostatectomy 08/[address] Layton Continence recovered Some erectile activity with medications 03/25 7.9 12/26 5.6 finasteride 10/24 5.6 finsteride cycling 06/24 4.1 cycling finasteride daily 01/22 3.1 cycling finasteride qod MRI - 11/25 prostate MRI anterior right transition zone 1.3 cm PiRADS 3, 40cc Prolaris - molecular score 3.6, overall recommendation single mode therapy (adjuvant hormonal therapy not recommended0 - risk profile matches left side high-risk curve below median for unfavorable intermediate Prostate Cancer - 01/23 - Grade 4 single core Clotilde score: 4+4=8 (b 3.5), 4+3=7 (D 3.5) - too small to grade (e 2.0, c 3.5) % of pattern 4: 50% of the tumor (at least), % of pattern 5: 0% Grade group: 4 and 3 Tumor quantitation: Number cores positive: 4 Total number of cores: 16 % of tissue involved: 10% of all tissue examined Periprostatic fat inv.: Not identified Seminal vesicle inv.: Not identified Perineural inv.: Not identified LVI: Not identified Prostate cancer: Single core but group 4 in May 2020 on repeat biopsy Single core positive Did ask about erectile dysfunction and prescription for tadalafil provided Prostate cancer was diagnosed 01/18 Dr Rivers. Diagnosis was reached by needle biopsy, for elevated PSA, PSA at diagnosis 4.8, size at TRUS 55gm. The Clotilde grade is - December 2018 3+3 = 6 / LLB 20% 1 core - Insufficient DNA for Polaris 05/20 - May 2020 , 4+4 = 8 / cores LLB 5% - on targeted core. pathology reviewed at [facility]. Assessment with small focus of Clotilde pattern 4 TNM Classification of Malignant Tumours (TNM) T1c. The D'Denny (NCCN) risk category is Low Risk (PSA< 10, Gl < 7, T1c), Group 1. Initial therapy included Primary treatment, Deferred Therapy (active surveillance). Recent labs included 04/20 2.0, 10/20 2.7, 02/20 2.3, 08/22 2.1, 12/24 2.2, 04/23 1.9, 10/23 3.2 Recent imaging included 05/21 MRI - will left paramedian base 2.3 cm lesion PiRADs 3 - 04/23 MRI 40gm 9mm PiRADS 3 RBL Associated conditions erectile dysfunction Yes PFSH Medical History Hyperlipidemia Feeling of incomplete bladder emptying Benign prostatic hyperplasia with lower urinary tract symptoms Surgical History History of prostate biopsy Review of Systems Const Denies chills and Denies fever(s) Card Reports no additional complaints and Denies syncope Resp Denies cough GI Denies abdominal pain and Denies heartburn Reports as per HPI and Denies change in libido Neuro Denies syncope Psych Denies change in libido Endo Denies change in libido Physical Exam Const General: cooperative, healthy appearing, comfortable and no acute distress Orientation/consciousness: patient oriented x3 HEENT Face and sinus: Yes normal facial exam Mouth: moist mucous membranes Neck Neck: Yes normal visual inspection, Yes full ROM and Yes trachea midline Chest Chest palpation & inspection: normal inspection of the chest Resp Effort & Inspection: normal respiratory effort, able to speak in complete sentences and no respiratory distress GI Inspection: Yes normal to inspection Back/Spine/Pelvis Cervical Spine: normal cervical lordosis Thoracic/Lumbar Spine: thoracic and lumbar spine normal to inspection Skin General skin exam: no rashes or lesions noted Neuro General: patient oriented x3, gait normal, tone normal and moves all extremities Extrem General: Yes normal to inspection and Yes capillary refill normal Assessment & Plan Assessment & Plan (1) Prostate cancer: Comment: May 2020 single focused core 5% Stella 4 + 4 Code(s): C61 - Malignant neoplasm of prostate Category: Medical Plan Four month follow-up PSA Orders: Orders Prostate Specific Antigen 4 Months C61 - Malignant neoplasm of prostate Patient Instructions: Imaging studies, laboratory and physical exam results were discussed and reviewed in detail. No major barriers to patient understanding were identified. An opportunity to ask questions regarding the treatment plan was provided. All questions were answered. The patient expressed understanding and agreement with the above treatment plan. The patient is aware they should contact our office by phone for worsening of their current condition or the appearance of new urologic symptoms. Compliance is encouraged with any medications and followup testing that is ordered. It is a privilege to participate in the urologic care of your patient. If you have any questions or concerns regarding treatment for the above conditions, or other urologic issues, please do not hesitate to contact me. The office telephone contact is [phone]. This note is constructed using voice recognition software. While every effort has been made to ensure accuracy senior treasury analyst errors may have been included. Yours sincerely, Dr Jerry Rivers MD, [facility] - Urology Providers of Expert, Compassionate Care for the Genitourinary System Coding Level of Care Code Est Pt Level 3 (84421) Diagnoses Prostate cancer C61
--- OUTSIDE RECORDS SUMMARY | 2024-10-21 14:05 | XMS_ITS ---
Author Name [facility] Organization Unknown Results Test Name/Text Value Interpretation Date Range Source RBC num Bld Auto 3.92Mil/uL Below low normal [id number] 4. 5 - 6.2 [facility] RDW RBC Auto-Rto 12% Normal [id number] 11.5 - 14. 5 [facility] PMV Bld Auto 10fL Normal [id number] 7.5 - 12.[address] MCH RBC Qn Auto 30.6pg Normal [id number] 27 - 31 [facility] WBC num Bld Auto 11.2Thou/uL Above high normal [id number] 4 - 11 [facility] Platelet num Bld Auto 218Thou/uL Normal [id number] 150 - 450 [facility] MCHC RBC Auto-mCnc 32.9g/dL Normal [id number] 30 - 36 [facility] Hct VFr Bld Auto 36.5% Below low normal [id number] 39 - 54 [facility] MCV RBC Auto 93fL Normal [id number] 80 - 100 [facility] T Hgb Bld-mCnc 12g/dL Below low normal [id number] 13 - 17 .7 [facility] Phosphate SerPl-mCnc 3.2mg/dL Normal [id number] 2.7 - 4.5 [facility] Calcium SerPl-mCnc 7.5mg/dL Below low normal [id number] 8 .7 - 10.5 [facility] BUN SerPl-mCnc 12mg/dL Normal [id number] 8 - 21 HH CCT Creat SerPl-mCnc 1.1mg/dL Normal [id number] 0.5 - 1.3 [facility] GFR/BSA.pred SerPlBld UJP-SVN-IdCMrb 72 Normal [id number] 59 - [facility] Chloride SerPl-sCnc 103mmol/L Normal [id number] 98 - 10 7 [facility] BUN/Creat SerPl 11Ratio Normal [id number] 10 - 25 H [facility] CO2 SerPl-sCnc 24mmol/L Normal [id number] 22 - 33 [facility] Anion Gap Bld-sCnc 9 Normal [id number] 7 - 17 [facility] Potassium SerPl-sCnc 4.5mmol/L Normal [id number] 3.4 - 5.3 [facility] Glucose SerPl-mCnc 106mg/dL Above high normal [id number] 65 - 99 [facility] Sodium SerPl-sCnc 136mmol/L Normal [id number] 136 - 145 [facility] Magnesium SerPl-mCnc 2mg/dL Normal [id number] 1.6 - 2.7 [facility] Neutrophils num Bld Auto 5.88Thou/uL Normal [id number] 2 - 7.5 [facility] Monocytes num Bld Auto 1.55Thou/uL Above high normal [id number] 0.2 - 1.5 [facility] Eosinophil num Bld Auto 0Thou/uL Normal [id number] 0 - 0.7 [facility] WBC num Bld Auto 8.2Thou/uL Normal [id number] 4 - 11 [facility] MCHC RBC Auto-mCnc 33.5g/dL Normal [id number] 30 - 36 [facility] Monocytes/leuk NFr Bld Auto 18.9% Normal [id number] [facility] Hct VFr Bld Auto 32.2% Below low normal [id number] 39 - 54 [facility] RBC num Bld Auto 3.42Mil/uL Below low normal [id number] 4. 5 - 6.2 [facility] RDW RBC Auto-Rto 11.8% Normal [id number] 11.5 - 14. 5 [facility] PMV Bld Auto 9.7fL Normal [id number] 7.5 - 12.[address] Eosinophil/leuk NFr Bld Auto 0% Normal [id number] [facility] MCH RBC Qn Auto 31.6pg Above high normal [id number] 27 - 31 [facility] Basophils/leuk NFr Bld Auto 0.1% Normal [id number] [facility] Basophils num Bld Auto 0.01Thou/uL Normal [id number] 0 - 0.2 [facility] Platelet num Bld Auto 186Thou/uL Normal [id number] 150 - 450 [facility] Neutrophils/leuk NFr Bld Auto 71.5% Normal [id number] [facility] MCV RBC Auto 94fL Normal [id number] 80 - 100 [facility] T Lymphocytes/leuk NFr Bld Auto 9.1% Normal [id number] [facility] Lymphocytes num Bld Auto 0.75Thou/uL Below low normal [id number] 1.5 - 4.5 [facility] Imm Granulocytes/leuk NFr Bld Auto 0.4% Normal [id number] [facility] Hgb Bld-mCnc 10.8g/dL Below low normal [id number] 13 - 17 .7 [facility] Imm Granulocytes num Bld Auto 0.03Thou/uL Normal [id number] 0 - 0.1 [facility] Ca-I SerPl-mCnc 1.05mmol/L Below low normal [id number] 1.1 7 - 1.33 [facility] History of Medication Use Medication Directions Dispensed Refills Start Date End Date [facility] sulfamethoxazole-trimet hoprim (BACTRIM DS,SEPTRA DS) 800-160 MG per tablet Take 1 tablet by mouth 2 (two) times a day. Begin the day before catheter removal 07/08/2024 active oxyCODONE (ROXICODONE) 5 MG immediate release tablet Take 1 tablet (5 mg total) by mouth 4 times daily (every 6 hours) as needed for severe pain. Max Daily Amount: 20 mg 07/08/2024 active docusate sodium (COLACE) 100 MG capsule Take 1 capsule (100 mg total) by mouth 2 (two) times a day as needed for constipation. 07/08/2024 active Bacillus Coagulans-Inulin (Probiotic) 1-250 BILLION-MG Cap Take by mouth daily. 06/25/2024 active ipratropium-albuterol (COMBIVENT RESPIMAT) 20-100 mcg/puff inhaler Inhale 1 puff 4 times daily (every 6 hours) as needed for shortness of breath. 06/25/2024 active cyclobenzaprine (FLEXERIL) 10 MG tablet nightly as needed. 06/25/2024 active meloxicam (MOBIC) 15 MG tablet Take 1 tablet (15 mg total) by mouth daily as needed. 06/25/2024 active sildenafil (REVATIO) 20 MG tablet Take 3-5 tabs 1 hour before sex. Take 2 pills at bedtime if no sex that day. Maximum 5 pills a day. 05/14/2024 active finasteride (PROSCAR) 5 MG tablet Take 1 tablet (5 mg total) by mouth daily. 05/14/2024 active simvastatin (ZOCOR) 20 MG tablet Take 1 tablet (20 mg total) by mouth daily. 05/14/2024 active simvastatin (ZOCOR) tablet 20 mg Take 1 tablet (20 mg total) by mouth daily. 05/11/2024 active omeprazole (PriLOSEC) 20 MG capsule Take 1 capsule (20 mg total) by mouth daily. 30 minutes before breakfast 05/11/2024 active meloxicam (MOBIC) 15 MG tablet TAKE 1 TABLET BY MOUTH DAILY FOR 15 DAYS 05/11/2024 active finasteride (PROSCAR) 5 MG tablet Take 1 tablet (5 mg total) by mouth daily. 05/11/2024 active Problems Problem Status Onset Date Problem Type Date of Resolution Source Umbilical hernia without obstruction and without gangrene active EncounterDiagnosisAct HH [facility] History of prostate cancer active 2024-07-10 ProblemAct [facility] Inguinal hernia, right active EncounterDiagnosisAct [facility] Prostate cancer active 2024-05-[address] [facility]
== END 2024-10-21 15:05 | disposition home or self-care (01) ==
PROVIDERS: PCP Internal Medicine; Visit Provider Urology
DX: C61 Malignant neoplasm of prostate (principal)
CPT/HCPCS: 99213

== ENCOUNTER → 2024-10-21 14:03 | Outpatient (BNVA) | payer MEDICARE, SELFPAY | PROVIDERS: PCP Internal Medicine; Visit Provider Urology | DX: C61 Malignant neoplasm of prostate (principal); N52.9 Male erectile dysfunction, unspecified | CPT/HCPCS: 99212 ==